=== PATIENT | male | born 1995 | race Caucasian/White ===

== ENCOUNTER 2024-07-03 23:19 | Emergency (ER) | payer OTHER ==
[~2024-07-03] VITALS: Ht 180.3 cm; Wt 74.8 kg
[2024-07-03] MEDS ORDERED: Ketorolac Tromethamine 15mg Vial IM ONE (23:40)
[2024-07-03] MEDS ORDERED: AMOCLA875 PO (23:44)
[2024-07-03] MEDS ORDERED: Amoxicillin/Clavulanate K 875 MG Tab PO ONE (23:45)
== END 2024-07-03 23:53 | disposition home or self-care (01) ==
LOC: ER 23:19
DX: K08.89 Other specified disorders of teeth and supporting structures (principal); F17.210 Nicotine dependence, cigarettes, uncomplicated; Z88.8 Allergy status to other drugs, medicaments and biological substances
CPT/HCPCS: 96372; 99282-25; A9270; J1885